=== PATIENT | female | born 1995 | race Caucasian/White ===

== ENCOUNTER 2025-06-15 15:18 | Emergency (ER) | payer MEDICAID ==
[~2025-06-15] VITALS: Ht 147.3 cm; Wt 65.0 kg
[2025-06-15 15:37] VITALS: O2SAT 100
[2025-06-15 16:14] LABS: CLARITY URINE CLEAR (CLEAR); COLOR URINE YELLOW (YELLOW); GLUCOSE URINE NEGATIVE (NEGATIVE); KETONES URINE NEGATIVE (NEGATIVE); LEUKOCYTE ESTERASE URINE NEGATIVE (NEGATIVE); NITRITE URINE NEGATIVE (NEGATIVE); OCCULT BLOOD URINE NEGATIVE (NEGATIVE); PH URINE 6.0 (4.5-8.0); PROTEIN URINE NEGATIVE (NEGATIVE); SPECIFIC GRAVITY URINE 1.015 (1.005-1.030); UROBILINOGEN URINE 1.0 E.U./dL (0.2-1.0)
[2025-06-15] MEDS: ACETAMINOPHEN 500MG TABLET PO ONE (16:15)
[2025-06-15] MEDS ORDERED: IBUPROFEN 600MG TABLET PO ONE (16:15)
[2025-06-15] MEDS ORDERED: METOCLOPRAMIDE HCL 10MG TABLET PO ONE (16:30)
[2025-06-15 16:44] LABS: BASOPHILS % 0.6 % (0.0-2.0); EOSINOPHILS % 0.9 % (0.0-5.0); HEMATOCRIT. 42.1 % (36.0-48.0); HEMOGLOBIN. 14.2 g/dL (12.0-16.0); LYMPHOCYTES % 24.7 % (20.0-50.0); MEAN PLATELET VOLUME 10.4 fl (7.4-10.4); MONOCYTES % 5.8 % (2.0-8.0); NEUTROPHILS % 68.0 % (40.0-76.0); PLATELET 207 x1000/uL (130-400); RED BLOOD CELL COUNT 4.74 mill/uL (4.2-5.4); RED CELL DISTRIBUTION WIDTH 14.3 % (11.6-14.6)
[2025-06-15 16:53] LABS: HCG SCREEN POSITIVE
[2025-06-15 16:59] LABS: CREATININE 0.8 mg/dL (0.6-1.0)
[2025-06-15 17:00] LABS: UREA NITROGEN BLOOD 8 mg/dL (9-23)
[2025-06-15 17:01] LABS: ASPARTATE AMINOTRANSFERASE 25 IU/L (<34); BILIRUBIN DIRECT 0.2 mg/dL (<=3.0)
[2025-06-15 17:02] LABS: BILIRUBIN TOTAL 0.5 mg/dL (0.1-1.0); PROTEIN TOTAL 6.8 g/dL (6.0-8.3)
[2025-06-15] MEDS: ONDANSETRON 4MG ODT PO ONE (17:30)
[2025-06-15] MEDS: ACETAMINOPHEN 325MG TABLET PO ONE (18:00)
[2025-06-15 19:12] LABS: HCG SCREEN POSITIVE
[2025-06-15] MEDS ORDERED: ONDA4TAB50 MT (22:56)
[2025-06-15 23:11] VITALS: BP 114/75; PULSE 74; RESP 13; TEMP 36.9; O2SAT 100
== END 2025-06-15 23:17 | disposition home or self-care (01) ==
LOC: ER 15:18
DX: O21.0 Mild hyperemesis gravidarum (principal); O26.891 Other specified pregnancy related conditions, first trimester; R10.2 Pelvic and perineal pain; Z3A.01 Less than 8 weeks gestation of pregnancy
CPT/HCPCS: 99284; 76801; 80076; 80048; 81003; 81025; 84702; 83690; 85025; 86850; 86900; 86901; 76817; 84703; 36415; Q0162; J8597